=== PATIENT | female | born 2000 | race Two or more races ===

== ENCOUNTER 2021-07-13 13:17 | Emergency (ER) | payer OTHER ==
[~2021-07-13] VITALS: Ht 167.6 cm; Wt 56.7 kg
== END 2021-07-13 15:56 | disposition designated cancer center or children's hospital (05) ==
LOC: ER 13:17
DX: S80.02XA Contusion of left knee, initial encounter (principal); V00.131A Fall from skateboard, initial encounter; Y93.89 Activity, other specified; Y92.830 Public park as the place of occurrence of the external cause; Y99.8 Other external cause status